=== PATIENT | female | born 1940 | race Caucasian/White ===

== ENCOUNTER 2017-12-27 11:59 | Outpatient (CLI) | payer MEDICARE, OTHER ==
[~2017-12-27 11:59] MED LIST: ALREX5 ML BOTH EYES; ATIVAN0.5 MG ORAL; BENICAR5 MG ORAL; CELEBREX200 MG ORAL; FISH OIL500 M2 PO; IBUPROFEN200 M2 ORAL; LEXAPRO10 MG ORAL; LORAZEPAM0.5 MG ORAL; LOVAZA1 GM ORAL; NAMENDA10 MG ORAL; NEXIUM40 MG ORAL; SIMVASTATIN20 MG ORAL; VENLAFAXINE H37.5 MG ORAL; VESICARE5 MG ORAL; ZETIA10 MG ORAL; eye drops
[2017-12-27 15:08] VITALS: BP 96/45
--- NOTE | 2017-12-27 15:37 | GI Progress Note ---
Assessment/Plan Problems: (1) Abdominal pain ICD Codes: R10.9 - Abdominal pain SNOMED: 41807455 (2) Chronic pancreatitis ICD Codes: K86.1 - Chronic pancreatitis SNOMED: 006419572 (3) GERD (gastroesophageal reflux disease) ICD Codes: K21.9 - GERD (gastroesophageal reflux disease) SNOMED: 155753885 Status: stable Status Narrative Seen with Dr. Holguin. Assessment/Plan ordered CT AP labs to be drawn >> CBC, CMP, Amylase, Lipase, CA 19-9 RTC after imaging studies/lab draws Subjective Subjective abdominal discomfort last colonoscopy 2014 last EUS 2014 hx of chronic pancreatitis ?left ankle/foot surgery at [facility] Objective Last 24 Hour Vital Signs Date Time Temp Pulse Resp B/P (MAP) Pulse Ox O2 Delivery O2 Flow Rate FiO2 12/27/17 15:08 97.6 66 96/45 97 97.6 General Appearance: WD/WN, no apparent distress, alert Cardiovascular: normal rate Respiratory/Chest: normal breath sounds, no respiratory distress Abdominal Exam: normal bowel sounds, non tender, soft Extremities: normal range of motion, non-tender Anel Ludwig N.P. Dec 27, 2017 15:37
[2017-12-27] MEDS ORDERED: METFORMIN HCL500 M1 ORAL (15:44)
[2017-12-27] MEDS ORDERED: CRESTOR10 M2 ORAL (15:44)
[2017-12-27] MEDS ORDERED: ASPIRIN EC81 MG ORAL (15:44)
== END 2017-12-27 12:33 | disposition home or self-care (01) ==
LOC: PAN 11:59
DX: R10.9 Unspecified abdominal pain (principal); K86.1 Other chronic pancreatitis; K21.9 Gastro-esophageal reflux disease without esophagitis
CPT/HCPCS: 99213

== ENCOUNTER 2017-12-30 11:15 | Outpatient (CLI) | payer MEDICARE, OTHER ==
[~2017-12-30 11:15] MED LIST changes: +ASPIRIN EC81 MG ORAL; +CRESTOR10 M2 ORAL; +METFORMIN HCL500 M1 ORAL
[2017-12-30 11:26] LABS: BASOPHILS % (AUTO) 0.7 % (0.0-2.0); EOSINOPHILS % (AUTO) 1.3 % (0.0-3.0); HEMATOCRIT 38.7 % (37.0-47.0); HEMOGLOBIN 12.1 G/DL (12.0-16.0); LYMPHOCYTES % (AUTO) 34.9 % (20.0-45.0); MEAN CORPUSCULAR VOLUME 85 FL (80-99); MONOCYTES % (AUTO) 5.6 % (1.0-10.0); NEUTROPHILS % (AUTO) 57.4 % (45.0-75.0); PLATELET COUNT 190 K/UL (150-450); RED BLOOD COUNT 4.57 M/UL (4.20-5.40); RED CELL DISTRIBUTION WIDTH 11.9 % (11.6-14.8); WHITE BLOOD COUNT 6.8 K/UL (4.8-10.8)
[2017-12-30 12:01] LABS: ANION GAP 7 mmol/L (5-15); BLOOD UREA NITROGEN 20 mg/dL (7-18); CARBON DIOXIDE 28 MMOL/L (21-32); CHLORIDE 105 MMOL/L (98-107); CREATININE 0.9 MG/DL (0.55-1.30); POTASSIUM 4.7 MMOL/L (3.5-5.1); SODIUM 140 MMOL/L (136-145)
[2017-12-30 12:12] LABS: ALANINE AMINOTRANSFERASE 19 U/L (12-78); ALBUMIN 3.6 G/DL (3.4-5.0); ALKALINE PHOSPHATASE 87 U/L (46-116); AMYLASE 101 U/L (25-115); ASPARTATE AMINO TRANSFERASE 24 U/L (15-37); BILIRUBIN,TOTAL 0.5 MG/DL (0.2-1.0)
--- NOTE | 2017-12-30 14:41 | Diagnostic Imaging Report ---
Indication: Abdominal pain Technique: Continuous helical transaxial imaging of the abdomen and pelvis was obtained from the lung bases to the pubic symphysis during intravenous contrast administration. Coronal 2-D reformats were also obtained. Study obtained in a Siemens sensation [address] Automatic Exposure Control was utilized. Total Dose length Product (DLP): 1438.[address] Dose Index Volume (CTDIvol): 16.05,18.61 mGy Comparison: 05/12/2009 Findings: There is pneumobilia demonstrated within the slightly prominent biliary ducts. The presence of air suggests patency of the ducts. Gallbladder air also noted. There is slight calcification of the wall the gallbladder near the fundus. There is a small hiatal hernia present. Spleen is unremarkable. The pancreas is unremarkable. No CT evidence for pancreatitis. No pseudocysts are identified. Aorta is moderately calcified. Tiny hypodensities in the kidneys noted 2 small adequately characterize on this examination. Uterus is atrophic. Some retention of stool in the rectum and colon noted. The urinary bladder is unremarkable. There is narrowing of intervertebral discs and accompanying endplate osteophyte formation. Hypertrophied facet joints also demonstrated. IMPRESSION: No CT evidence for acute appendicitis. Some biliary ductal prominence noted. Presence of pneumobilia indicating patency of the CBD and likely indicative of a previous ERCP with papillotomy. Atherosclerotic vascular disease. Small hiatal hernia. No significant change compared to the exam from the prior date 05/12/2009. Degenerative changes of the spine The CT scanner at [facility] is accredited by the [employer] and the scans are performed using dose optimization techniques as appropriate to a performed exam including Automatic Exposure control.
== END 2017-12-30 13:15 | disposition home or self-care (01) ==
LOC: CAT 11:15
DX: K86.1 Other chronic pancreatitis (principal); K44.9 Diaphragmatic hernia without obstruction or gangrene; I25.10 Atherosclerotic heart disease of native coronary artery without angina pectoris
CPT/HCPCS: 36415; 74177; 80053; 82150; 83690; 85025; Q9967

== ENCOUNTER 2018-01-02 13:15 | Outpatient (CLI) | payer MEDICARE, OTHER ==
[2018-01-02 13:30] VITALS: BP 81/43
--- NOTE | 2018-01-02 14:23 | GI Progress Note ---
Assessment/Plan Problems: (1) Chronic constipation ICD Codes: K59.09 - Other constipation SNOMED: 898917895 (2) Abdominal pain ICD Codes: R10.9 - Abdominal pain SNOMED: 13952260 (3) GERD (gastroesophageal reflux disease) ICD Codes: K21.9 - GERD (gastroesophageal reflux disease) SNOMED: 801153084 Status: stable Status Narrative Seen with Dr. Holguin. Assessment/Plan hx of ERCP, chronic pancreatitis CT / labs reviewed RTC prn The patient was seen and examined at bedside and all new and available data was reviewed in the patients chart. I agree with the above findings, impression and plan. (Patient seen earlier today. Signature stamp does not reflect patient encounter time.). - Fabi Holguin MD Subjective Gastrointestinal/Abdominal: Reports: no symptoms Objective Last 24 Hour Vital Signs Date Time Temp Pulse Resp B/P (MAP) Pulse Ox O2 Delivery O2 Flow Rate FiO2 01/02/18 13:30 98.2 68 16 81/43 94 98.2 General Appearance: WD/WN, no apparent distress, alert Cardiovascular: normal rate Respiratory/Chest: normal breath sounds, no respiratory distress Abdominal Exam: normal bowel sounds, non tender, soft Extremities: normal range of motion, non-tender Anel Ludwig N.P. Jan 02, 2018 14:23 LUPIS HOLGUIN Jan 10, 2018 13:28
== END 2018-01-02 13:48 | disposition home or self-care (01) ==
LOC: PAN 13:15
DX: K59.09 Other constipation (principal); R10.9 Unspecified abdominal pain; K21.9 Gastro-esophageal reflux disease without esophagitis
CPT/HCPCS: 99211

== ENCOUNTER 2018-06-27 10:58 | Outpatient (CLI) | payer MEDICARE, OTHER ==
[2018-06-27 12:24] VITALS: BP 123/56
--- NOTE | 2018-06-27 15:21 | GI Progress Note ---
Assessment/Plan Problems: (1) Chronic constipation ICD Codes: K59.09 - Other constipation SNOMED: 331229313 (2) Abdominal pain ICD Codes: R10.9 - Abdominal pain SNOMED: 45188183 (3) GERD (gastroesophageal reflux disease) ICD Codes: K21.9 - GERD (gastroesophageal reflux disease) SNOMED: 154326585 (4) Chronic pancreatitis ICD Codes: K86.1 - Chronic pancreatitis SNOMED: 237175157 (5) Depression ICD Codes: F32.9 - Depression SNOMED: 06346451 (6) Anxiety attack ICD Codes: F41.0 - Anxiety attack SNOMED: 133731038 Status: stable Status Narrative Seen with Dr. Holguin. Assessment/Plan Rx Linzess 72mcg RTC prn The patient was seen and examined at bedside and all new and available data was reviewed in the patients chart. I agree with the above findings, impression and plan. (Patient seen earlier today. Signature stamp does not reflect patient encounter time.). - Cleveland Holguin MD Subjective Subjective GERD Nausea Left flank pain Objective Last 24 Hour Vital Signs Date Time Temp Pulse Resp B/P (MAP) Pulse Ox O2 Delivery O2 Flow Rate FiO2 06/27/18 12:24 97.6 67 123/56 96 97.6 General Appearance: WD/WN, no apparent distress, alert Cardiovascular: normal rate Respiratory/Chest: normal breath sounds, no respiratory distress Abdominal Exam: normal bowel sounds, non tender, soft Extremities: normal range of motion, non-tender Sony Ludwig [employer]ING [employer] Jun 27, 2018 15:21
== END 2018-06-27 11:28 | disposition home or self-care (01) ==
LOC: PAN 10:58
DX: K59.09 Other constipation (principal); R10.9 Unspecified abdominal pain; K21.9 Gastro-esophageal reflux disease without esophagitis; K86.1 Other chronic pancreatitis; F32.9 Major depressive disorder, single episode, unspecified; F41.0 Panic disorder [episodic paroxysmal anxiety]
CPT/HCPCS: 99212

== ENCOUNTER 2018-07-20 13:27 | Outpatient (CLI) | payer MEDICARE, OTHER ==
--- NOTE | 2018-07-20 14:04 | GI Progress Note ---
Assessment/Plan Problems: (1) Constipation ICD Codes: K59.00 - Constipation, unspecified SNOMED: 47070828 (2) Diarrhea ICD Codes: R19.7 - Diarrhea, unspecified SNOMED: 23089458 (3) Nausea & vomiting ICD Codes: R11.2 - Nausea with vomiting, unspecified SNOMED: 61106355 (4) Dizziness ICD Codes: R42 - Dizziness and giddiness SNOMED: 105051518, 842729515 (5) Chronic constipation ICD Codes: K59.09 - Other constipation SNOMED: 732592380 (6) Abdominal pain ICD Codes: R10.9 - Abdominal pain SNOMED: 91500368 (7) GERD (gastroesophageal reflux disease) ICD Codes: K21.9 - GERD (gastroesophageal reflux disease) SNOMED: 656094866 (8) Chronic pancreatitis ICD Codes: K86.1 - Chronic pancreatitis SNOMED: 444987804 Status: stable Status Narrative Seen with Dr. Holguin. Assessment/Plan needs cardiac evaluation given presenting symptoms, referral to Dr. Salmon. cont bowel regime RTC after consultation The patient was seen and examined at bedside and all new and available data was reviewed in the patients chart. I agree with the above findings, impression and plan. (Patient seen earlier today. Signature stamp does not reflect patient encounter time.). - Cleveland Holguin MD Subjective Subjective constipation, on linzess 72 mcg nausea/vomiting + diarrhea fatigue occasional dizziness Objective T 97.4 BP 115/61 P 68 96 RA WT 151 lbs General Appearance: WD/WN, no apparent distress, alert Cardiovascular: normal rate Respiratory/Chest: normal breath sounds, no respiratory distress Abdominal Exam: normal bowel sounds, non tender, soft Extremities: normal range of motion, non-tender Sony Ludwig APPLICATION DEVELOPMENT CONSULTANT Jul 20, 2018 14:04
[2018-07-20 15:03] VITALS: BP 115/61
[2018-07-20] MEDS ORDERED: LINZESS 72 MCG PO (15:03)
== END 2018-07-20 13:57 | disposition home or self-care (01) ==
LOC: PAN 13:27
DX: K59.09 Other constipation (principal); R19.7 Diarrhea, unspecified; R11.2 Nausea with vomiting, unspecified; R42 Dizziness and giddiness; K21.9 Gastro-esophageal reflux disease without esophagitis; K86.1 Other chronic pancreatitis
CPT/HCPCS: 99212